=== PATIENT | male | born 1945 | race Caucasian/White ===

== ENCOUNTER → 2020-03-15 | Outpatient (CLI) | payer MEDICARE, OTHER | LOC: GMAM 10:37 | PROVIDERS: ATTEND Family Medicine | DX: N40.0 Benign prostatic hyperplasia without lower urinary tract symptoms (principal); I10 Essential (primary) hypertension; R73.9 Hyperglycemia, unspecified; E78.5 Hyperlipidemia, unspecified; R53.83 Other fatigue ==

== ENCOUNTER → 2020-05-05 | Outpatient (CLI) | payer MEDICARE | LOC: GMAM 14:36 | PROVIDERS: ATTEND Family Medicine | DX: R79.9 Abnormal finding of blood chemistry, unspecified (principal) ==

== ENCOUNTER → 2020-05-11 | Outpatient (CLI) | payer MEDICARE | LOC: GMAM 16:42 | PROVIDERS: ATTEND Family Medicine | DX: M65.30 Trigger finger, unspecified finger (principal) ==

== ENCOUNTER → 2020-06-29 | Outpatient (CLI) | payer MEDICARE ==
--- NOTE | 2020-06-29 19:46 | US ---
EXAM DESCRIPTION: Venous,Lower Extremity LT: ULTRASOUND. CLINICAL HISTORY: cellulitis of left lower limb. History of DVT left lower extremity. COMPARISON: None Available. TECHNIQUE: Miller-scale and doppler sonographic evaluation of the deep venous system of the left lower extremity. FINDINGS: Doppler evaluation shows partial thrombus in the proximal superficial femoral vein, mid superficial femoral vein, distal superficial femoral vein, popliteal vein, and peroneal vein. Grayscale evaluation shows echogenic thrombus in these veins and the veins are partially are incompletely occluded with transducer pressure. Normal color flow and normal phasicity and augmentation of the left common femoral vein, left greater saphenous vein, junction with the CFV. Also normal color flow and normal phasicity and augmentation of the left posterior tibial vein. These left lower extremity deep veins were completely compressible; normal occlusion with transducer pressure. Miller-scale survey showed no echogenic thrombus within these veins. IMPRESSION: 1. 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 Thrombus also has an echogenic appearance.. 2. The remaining veins of the deep venous system of the left lower extremity are unremarkable. CRITICAL COMMUNICATION: The critical value was communicated by text message from Dr. Knox at 1621 hours, on June 29, 2020, to Dr. Ines Acosta with text acknowledgment by Dr. Acosta at approximately 1704 hours, on same date.. Electronically signed by: Diogenes Knox MD 06/29/2020 7:44 PM [employer]
== END ==
LOC: US 14:26
PROVIDERS: ATTEND Family Medicine
DX: I82.512 Chronic embolism and thrombosis of left femoral vein (principal); I82.532 Chronic embolism and thrombosis of left popliteal vein; I82.552 Chronic embolism and thrombosis of left peroneal vein; L03.116 Cellulitis of left lower limb

== ENCOUNTER → 2020-07-01 | Outpatient (CLI) | payer MEDICARE | LOC: GMAM 15:48 | PROVIDERS: ATTEND Family Medicine | DX: I82.402 Acute embolism and thrombosis of unspecified deep veins of left lower extremity (principal) ==